=== PATIENT | female | born 1950 | race Caucasian/White ===

== ENCOUNTER 2021-03-06 05:38 | Observation (INO) ==
--- NOTE | 2021-02-27 08:51 | Anesthesiology Consultation ---
Date of Service February 27, 2021 Assessment & Plan (1) Encounter for pre-operative examination: COVID screening: Per assessment on 02/24: Travel screen negative, no known COVID-19 positive contacts or current COVID-19 related symptoms. Surgeon arranging preop COVID testing (scheduled 03/01; [facility]). Preop COVID test will be 5 days old. Will order Mendez for AM DOS. Chart Review Chart Review: Acceptable Risk for Surgery and Patient NOT seen in Pre Admission Testing History Surgery Operation Date: 03/06/21 09:55 Proposed Procedures p Left Breast Simple Mastectomy and Left [place] Lymph Node Biopsy - Lorenzo Marcos MD Height/Weight Height: 5 ft 5.5 in Weight: 59.421 kg Allergies Allergy/AdvReac Type Severity Reaction Status Date / Time No Known Allergies Allergy Verified 02/24/21 15:14 Medications Home Medications Medication Instructions Recorded Confirmed Last Taken atenolol 100 mg-chlorthalidone 25 1 tab PO QAM 02/24/21 02/24/21 Unknown mg tablet calcium 500 mg tablet 500 mg PO BID 02/24/21 02/24/21 Unknown digoxin 125 mcg (0.125 mg) tablet 125 mcg PO HS 02/24/21 02/24/21 Unknown multivitamin 1 tab PO QAM 02/24/21 02/24/21 Unknown omega-3 fatty acids 1,000 mg PO QAM 02/24/21 02/24/21 Unknown simvastatin 20 mg tablet 20 mg PO HS 02/24/21 02/24/21 Unknown Past Medical History Medical History Atrial fibrillation Monitored by PCP, no recent known occurrences, on beta clifton/digoxin SB with PACs on most recent EKG 02/17/21* BCC (basal cell carcinoma) Breast cancer Left Hyperlipidemia Hypertension Osteoarthritis Past Family History Family History Other No family history of adverse response to anesthesia Past Surgical History Surgical History History of appendectomy History of breast biopsy History of colonoscopy History of Mohs micrographic surgery for skin cancer Social History Smoking Status: Never smoker Do You Dip or Chew Tobacco: No Hx Alcohol Use: No Hx Substance Use: No Testing Laboratory Results 02/17/21 WBC 6.41 H/H 14.8/43.7 PLATELETS 269 SODIUM 141 POTASSIUM 3.8 CHLORIDE 100 CO2 30 BUN 11 CREATININE 0.6 GLUCOSE 102 Electrocardiogram Date: 02/17/21 SB with PACs at 54bpm. iRBBB.
[2021-03-06] MEDS ORDERED: ceFAZolin 2000MG 2,000 MG/15 ML SYR IV SCH (06:00)
[2021-03-06] MEDS ORDERED: LR 15ML/HR IV SCH (06:00)
--- NOTE | 2021-03-06 09:08 | History & Physical Bridge Note ---
Date of Service March 06, 2021 History & Physical Bridge Note I have examined the patient, reviewed the History & Physical and in the interval since the performance of the History & Physical I have noted the following changes of clinical significance: no changes noted
[2021-03-06] MEDS ORDERED: MIDAZOLAM HCL 1 MG/ML 2ML VIAL ONE (10:04)
[2021-03-06] MEDS ORDERED: fentaNYL citrate 100 MCG/2 ML VIAL ONE ×2 (10:04)
[2021-03-06] MEDS ORDERED: ONDANSETRON INJ 2 MG/ML 2 ML VIAL IV PRN ×2 (10:42→14:40)
[2021-03-06] MEDS ORDERED: ATROPINE SULFATE 0.1 MG/ML 10ML SYR IV PRN (10:42)
[2021-03-06] MEDS ORDERED: ePHEDrine sulfate 50 MG/ML AMP IV PRN (10:42)
[2021-03-06] MEDS ORDERED: PROMETHAZINE HCL 6.25 MG in SODIUM CHLORIDE 0.9% 50 ML IV PRN (10:42)
[2021-03-06] MEDS ORDERED: fentaNYL citrate 100 MCG/2 ML VIAL IV PRN (10:42)
--- NOTE | 2021-03-06 10:54 | Nuclear Medicine Report ---
LYMPHOSCINTIGRAPHY with imaging HISTORY: Left breast cancer RADIOTRACER: 0.49 mCi of lymphoseek. Study/Images: static anterior. PROCEDURE: Using standard sterile technique, four intradermal and one deep injections of radiotracer were placed in the left breast. The patient tolerated the procedure well without any complications. FINDINGS: Tracer localization was demonstrated at the injection site. In addition, focal tracer uptake in the l eft axilla was demonstrated and marked cutaneously. IMPRESSION: Lymphoscintigraphy was performed and a left axillary sentinel lymph node localized and marked for bio psy. ACT 112: Negative or not required by law. Electronically signed by: Bnadar Mcarthur M.D. 03/06/2021 10:52 AM
[2021-03-06] MEDS ORDERED: LIDOCAINE/EPINEPHRINE 1% 20 ML VIAL ONE (11:14)
[2021-03-06] MEDS ORDERED: ISOSULFAN BLUE 10 MG/ML VIAL 5 ML ONE (11:14)
[2021-03-06] MEDS ORDERED: DEXAMETHASONE SOD INJ 4 MG/ML VIAL ONE (11:46)
[2021-03-06] MEDS ORDERED: PHENYLEPHRINE 100MCG/ML 5ML SYR ONE (11:46)
[2021-03-06] MEDS ORDERED: ONDANSETRON INJ 2 MG/ML 2 ML VIAL ONE (11:46)
[2021-03-06] MEDS ORDERED: PROPOFOL IV EMULSION 10 MG/ML 20 ML VIAL IV ONE (11:46)
[2021-03-06] MEDS ORDERED: ePHEDrine sulfate 50 MG/ML SYR ONE (11:46)
[2021-03-06] MEDS ORDERED: LIDOCAINE 2% 2 ML VIAL/AMP(20MG/ML) INFIL ONE (11:46)
--- NOTE | 2021-03-06 12:49 | Post Operative Brief Note ---
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
--- NOTE | 2021-03-06 12:57 | Operative Report ---
Post Operative Report Pre & Post Diagnosis Operation Date: 03/06/21 10:25 Pre-Op Diagnosis: Stage II Infiltrating Ductal Carcinoma of the Left Lower Outer Breast Post-Op Diagnosis: Stage II Infiltrating Ductal Carcinoma of the Left Lower Outer Breast I identified the patient and participated in the time-out.: Yes Procedure Operation Date: 03/06/21 10:25 Actual Procedures p Left Breast Simple Mastectomy and Left [place] Lymph Node Biopsy(Left) - Lorenzo Marcos MD Surgeon Lorenzo Marcos MD Stock Associate RIMA Castro assisted with tissue retraction and closure Estimated Blood Loss 10 Findings Consistent with Post-Op Diagnosis 1 sentinel lymph node, left axilla, hot and blue 2 cm palpable mass left lower outer quadrant 5 o'clock position, completely removed with mastectomy specimen 10 Russian flat DREAD drain placed through separate stab incision Specimens Left breast, entire Left axillary sentinel lymph node x1 Drains 10 Russian flat DREAD drain Anesthesia Type General Complications No immediate complications Indications Left breast cancer Description of Procedure The patient was taken to the operating room, placed supine on the operating table. A timeout was performed, perioperative antibiotics were administered, SCD boots were placed. Methylene blue dye was injected at the nipple areolar complex on the left and massaged into the lymphatics. A marking pen was used to trace out the elliptical incision for the mastectomy, including the nipple areolar complex, and extending into the axilla. After adequate anesthesia and analgesia was obtained, the chest and axilla was prepped and draped in the normal sterile fashion. 1% lidocaine with epinephrine was injected along the incision and into the subcutaneous breast tissue of the left breast. Incision was made with a 15 blade scalpel following the previously drawn elliptical incision. Attention was turned to the left axilla, which was accessed through the lateral aspect of the incision. The clavipectoral fascia was identified and opened. A neoprobe was used to identify the sentinel lymph node, which was dissected free circumferentially. The lymphatics were clamped and transected, and tied off with a 3-0 silk tie. The sentinel lymph node measured 297 on the gamma probe. The background radiation was less than 10% of the sentinel node. The incision was opened to its fullest extent down into the subcutaneous tissue. Flaps were raised superiorly and inferiorly. The breast tissue was taken off the subcutaneous tissue with the Bovie electrocautery. This was done taking care to not leave too much breast tissue, or take the general blood supply. The extent of the dissection of the breast was medially to the sternum, inferiorly to the rectus abdominis fascia, superiorly to the superior extent of the breast tissue which was at approximately the second rib space, and laterally into the axillary fat pad. Once is complete, the breast was removed from the underlying pectoralis major muscle with the electrocautery, taking care to remove the pectoralis fascia with the specimen. Care was taken to avoid any perforating vessels. Bleeding was controlled with the electrocautery. The breast was removed, and oriented with sutures and ink. It was sent off the field for specimen. Attention was turned to hemostasis, which was excellent. The wound was copiously irrigated and suctioned free. A 10 Russian flat DREAD drain was placed through separate stab incision and was secured with a 3-0 nylon suture. The subcutaneous tissue was closed with interrupted 3-0 Vicryl sutures. The skin was closed with running 4-0 Monocryl subcuticular stitch. Benzoin and Steri- Strips were applied. A dressing was applied. She tolerated the procedure without complication, and was transferred in stable condition to the PACU. All instrument, needle, and sponge counts were correct at the end of the case. My civil engineering assistant was necessary throughout the procedure for tissue retraction, possible camera operation, and closure of the wounds. I understand that section 1842(b)(7)(D) of the Social Security act generally prohibits Medicare physician fee schedule payment for the services of assistants at surgery in teaching hospitals when qualified residents are available to furnish such services. I certify that the services for which payment is claimed were medically necessary and that no qualified resident was available to perform the services. I further understand that these services are subject to postpayment review by the Medicare carrier. I attest to the content of the Intraoperative Record and any orders documented therein. Any exceptions are noted below.
--- NOTE | 2021-03-06 13:36 | Anesthesiology Progress Note ---
Date of Service March 06, 2021 Anesthesia Post Procedure Vital Signs Vital Signs: Temp Pulse Pulse Resp BP Pulse Ox 03/06/21 13:30 89 18 145/60 H 98 03/06/21 13:20 69 18 147/56 H 100 03/06/21 13:10 72 16 129/51 L 100 03/06/21 13:03 36.3 C L 62 14 134/56 L 100 03/06/21 06:28 37.2 C 70 18 165/62 H 97 Transfer of Care Handoff Completed per policy Notes Mental Status: alert / awake / arousable Patient Amnestic to Procedure: Yes Nausea / Vomiting: adequately controlled Pain: adequately controlled Airway Patency, RR, SpO2: stable & adequate BP & HR: stable & adequate Hydration State: stable & adequate Anesthetic Complications: no major complications apparent and Pt Satisfied with anesthetic care
[2021-03-06] MEDS ORDERED: diphenhydrAMINE Capsule 25 MG CAP PO PRN (14:40)
[2021-03-06] MEDS ORDERED: oxyCODONE/ACETAMINOPHEN 5mg/325mg TAB PO PRN (14:40)
[2021-03-06] MEDS ORDERED: PROMETHAZINE HCL 12.5 MG in SODIUM CHLORIDE 0.9% 50 ML IV PRN (14:40)
[2021-03-06] MEDS ORDERED: MoRPHine SULFATE 2 MG/ML CARP IV PRN (14:40)
[2021-03-06] MEDS ORDERED: LACTATED RINGER'S 1,000 ML IV SCH (14:40)
[2021-03-06 16:42] LABS: Creatinine Clr Calc Pharmacy 59.1 ml/min; Est GFR (African American) 86.7 ml/min; Est GFR (Non-African American) 74.8 ml/min
[2021-03-06] MEDS ORDERED: ATENOLOL 50 MG TABLET PO ONE (18:32)
[2021-03-06] MEDS ORDERED: SIMVASTATIN 20 MG TAB PO SCH (21:00)
[2021-03-06] MEDS ORDERED: DIGOXIN 0.125 MG TAB PO SCH (21:00)
--- NOTE | 2021-03-07 07:23 | Surgery Progress Note ---
Date of Service March 07, 2021 Assessment & Plan (1) Breast cancer: Plan: POD#1 s/p left breast sentinel lymph node biopsy and left breast mastectomy for left sided breast cancer. doing well. tolerating diet; no need for pain meds overnight. drain teaching for home drain care oob ambulate ad hilda lymphedema exercises as directed home today; follow up in one week for drain check Admission and Anticipated Discharge Date Admission Date: March 06, 2021 Subjective doing well. no pain, nausea, vomiting. no fevers/chills. has not used any pain meds overnight Physical Exam Constitutional: WD/WN, vitals as above Eyes: PERRL, conjunctivae normal, anicteric sclerae Neck: trachea midline, no thyromegaly Skin: no rashes, warm and dry left chest wall dressing c/d/i; dressing removed - incision without erythema or induration; steris in place; DREAD drain with minimal serosanguinous output Psychiatric: A+Ox3, euthymic affect Results & Data ([facility]) Vital Signs (Past 12 Hours) Vital Signs Temp Pulse Pulse Resp BP Pulse Ox Pulse Ox 03/07/21 07:17 37.1 C 62 16 116/65 97 03/07/21 03:03 36.7 C 65 16 118/55 L 97 03/06/21 22:59 36.7 C 69 16 107/52 L 97 03/06/21 20:18 98 H 03/06/21 20:16 98 H 132/61 95 03/06/21 20:10 97 03/06/21 19:47 36.7 C 101 H 16 125/64 94
--- NOTE | 2021-03-07 07:33 | Discharge Summary ---
Date of Service March 07, 2021 Admission HPI Per Admitting Provider 70 year old woman with left sided breast cancer; details in admitting H&P Principal Diagnosis left breast cancer Discharge Exam Constitutional WD/WN, vitals as above Eyes PERRL, conjunctivae normal, anicteric sclerae Neck trachea midline, no thyromegaly Skin no rashes, warm and dry Psychiatric A+Ox3, euthymic affect Discharge Data Allergies Allergy/AdvReac Type Severity Reaction Status Date / Time No Known Allergies Allergy Verified 03/06/21 06:21 Procedures Performed Operation Date: 03/06/21 10:25 Actual Procedures p Left Breast Simple Mastectomy and Left [place] Lymph Node Biopsy(Left) - Lorenzo Marcos MD Ordered Studies 03/06/21 05:00 US - OR guided needle placemen Routine Hospital Course (1) Breast cancer: admitted to the hospital after left mastectomy and sentinel node biopsy, details in separate operative note. transferred from PACU to floor without incident. Advanced diet as tolerated. DVT prophylaxis with SCDs and Lovenox. Aggressive pulmonary toilet with incentive spirometry and early ambulation. Pain control with PO and IV meds. Drain teaching and lymphedema exercise teaching at bedside. By the date of discharge, POD#1, she was tolerating a diet, not requiring IV pain meds. She was discharged to home in stable condition with the drain in place. Total Time Total Time Spent Total Time Spent (In Minutes): less than 30 minutes Discharge Plan Discharge Items Patient Disposition: Home - Self-Care Reason For Visit: Abnormal Mammogram with Microcalcification Discharge Diagnosis: left breast infiltrating ductal carcinoma Activity: Per Instructions section Lifting: No more than 25 pounds Lifting Comment: take care with left arm - no needle sticks/blood pressures on the left side Bathing Comment: may shower tomorrow; keep drain dry; no soaking until drain out Sexual Activity: Wait until after follow-up appointment Exercise/Sports: Wait until after follow-up appointment Driving/Machine Use: one week Non-emergency contact: Surgeon Call non-emergency contact if: you have any medication questions, your symptoms worsen, your pain is not controlled, your pain is worsening, your pain is unusual for you, your temperature is above 101.5, your wound has increased redness, your wound has increased drainage and your wound pain has increased Follow-up/Referrals: PCP,NO [Primary Care Provider] - Diet: Regular Addtl Attending Provider Instructions: Drain care as per nursing instructions: empty and record drain output daily. will plan to remove drain when output is below 20 mL/day for a few days. Lymphedema exercises - walk fingers up wall; elevate arm - few times per day Call with any questions/concerns/drain questions - Pending Studies at Discharge: No Stand-Alone Forms: My [facility] Insurance, Smoking Cessation Medications and DC Order Prescriptions: New oxycodone-acetaminophen [Percocet] 5-325 mg tablet 1 tab PO Q6H PRN (Reason: pain) Qty: 10 RF: 0 cephalexin 500 mg capsule 500 mg PO Q8H 7 Days Qty: 21 RF: 0 Continued multivitamin [Multi-Vitamin] Tablet 1 tab PO QAM RF: 0 atenolol-chlorthalidone 100-25 mg Tablet 1 tab PO QAM RF: 0 calcium 500 mg Tablet 500 mg PO BID RF: 0 simvastatin 20 mg Tablet 20 mg PO HS RF: 0 digoxin 125 mcg (0.125 mg) Tablet 125 mcg PO HS RF: 0 Fish Oil Concentrate Capsule 1,000 mg PO QAM RF: 0 Discharge Orders: Discharge Order (Routine); Ordered 03/07/21 Ordered By: Lorenzo Marcos Admission Data Admit Date/Time: 03/06/21 13:02 Attending Provider: Lorenzo Marcos Admit Provider: Lorenzo Marcos Primary Care Provider: PCP,CHRISTINE
[2021-03-07] MEDS ORDERED: CHLORTHALIDONE 25 MG TAB PO SCH (09:00)
[2021-03-07] MEDS ORDERED: ATENOLOL 50 MG TABLET PO SCH (09:00)
[2021-03-07] MEDS ORDERED: ENOXAPARIN INJ 40 MG/0.4 ML SYR SQ SCH (09:00)
[2021-03-07] MEDS ORDERED: ATENOLOL CHLORTHALIDONE PO SCH (09:00)
== END 2021-03-07 11:11 | disposition home or self-care (01) ==
LOC: 3N 05:38 → ASU 05:38